=== PATIENT | female | born 1995 | race Caucasian/White ===

== ENCOUNTER 2017-03-06 16:56 | Emergency (ER) | payer OTHER ==
[~2017-03-06] VITALS: Ht 203.2 cm; Wt 72.6 kg
== END 2017-03-06 19:08 | disposition home or self-care (01) ==
LOC: ER 16:56
DX: S93.491A Sprain of other ligament of right ankle, initial encounter (principal); X50.9XXA Other and unspecified overexertion or strenuous movements or postures, initial encounter; Y93.89 Activity, other specified; Y92.89 Other specified places as the place of occurrence of the external cause; Y99.8 Other external cause status

== ENCOUNTER 2017-03-13 09:39 | Outpatient (CLI) | payer OTHER | END 2017-03-13 14:39 | disposition home or self-care (01) | LOC: RAD 09:39 | DX: M25.571 Pain in right ankle and joints of right foot (principal) ==